=== PATIENT | female | born 1985 | race Caucasian/White ===

== ENCOUNTER 2018-05-15 11:12 | Emergency (ER) | payer OTHER ==
[~2018-05-15] VITALS: Ht 165.1 cm; Wt 127.0 kg
[2018-05-15] MEDS ORDERED: CELEXA40 MG (11:25)
[2018-05-15] MEDS ORDERED: SPIRONOLACTONE25 M1 PO (11:25)
[2018-05-15] MEDS ORDERED: NORCO 5-325 TA1 EACH PO (12:34)
[2018-05-15 12:49] VITALS: BP 110/67
== END 2018-05-15 12:49 | disposition home or self-care (01) ==
LOC: M.ERS 11:12
DX: S80.02XA Contusion of left knee, initial encounter (principal); F41.8 Other specified anxiety disorders; Z88.0 Allergy status to penicillin; Z88.8 Allergy status to other drugs, medicaments and biological substances; W01.0XXA Fall on same level from slipping, tripping and stumbling without subsequent striking against object, initial encounter; Y93.89 Activity, other specified; Y92.89 Other specified places as the place of occurrence of the external cause; Y99.8 Other external cause status